=== PATIENT | male | born 1980 | race Caucasian/White ===

== ENCOUNTER 2021-06-13 16:26 | Emergency (ER) | payer SELFPAY ==
--- NOTE | 2021-06-13 18:39 | EDM.PDOC ---
ED HPI GENERAL MEDICAL PROBLEM - General Chief Complaint: Respiratory Problem Stated Complaint: COVID COMPLICATIONS Time Seen by Provider: 06/13/21 17:50 - History of Present Illness INITIAL COMMENTS - FREE TEXT/NARRATIVE: CHIEF COMPLAINT(S): Fatigue HISTORY OF PRESENT ILLNESS: This is a 41-year-old man without any significant past medical history who comes to the emergency department chief complaint of fatigue. The 10 states that he has been experienced symptoms for approximately 13 days and was diagnosed with Covid on June 07, 2021. He states that he has had continued fatigue and does not really feel like he wants to eat or drink any. He states that he has been trying to stay hydrated with Gatorade and water. In addition he states that he is still feeling dyspneic. He states that this is mainly when he is ambulating. He denies any fevers but states that he does have a cough which is intermittent and improving. He states that he has been cooperative. He denies recent travel, recent surgery or prior history of DVT or PE. He denies any chest pain. REVIEW OF SYSTEMS: Constitutional: Positive for fatigue. Denies fever, chills. Eyes: Denies eye pain Ears, Nose, Mouth, & Throat: Denies earache Cardiovascular: Denies chest pain Respiratory: Positive for exertional dyspnea and nonproductive cough Gastrointestinal: Positive anorexia. Denies Nausea, vomiting, diarrhea, hematochezia. Genitourinary: Denies hematuria Skin:Denies a rash MSK: Denies joint pain Neurological: Denies blurred vision Psychiatric: Denies depression PAST MEDICAL HISTORY: As per history of present illness and as reviewed below otherwise noncontributory. SURGICAL HISTORY: As per history of present illness and as reviewed below otherwise noncontributory. SOCIAL HISTORY: As per history of present illness and as reviewed below otherwise noncontributory. FAMILY HISTORY: As per history of present illness and as reviewed below otherwise noncontributory. EXAMINATION OF ORGAN SYSTEMS/BODY AREAS: Constitutional: Blood pressure is 144/79, heart rate 88, respiratory rate 18 with an oxygen saturation of 97% on room air. Temperature 36.7 General: Well-appearing man who is in no acute distress psychiatric: Appropriate mood and affect. Eyes: No scleral icterus or conjunctival erythema ENMT: Moist mucous membranes. No pharyngeal erythema Cardiovascular: Regular, rate, and rhythm. No gallops, murmurs, or rubs. Bilateral upper extremity pulses symmetric and intact. No peripheral edema. No JVD. Respiratory: Lungs clear to auscultation bilaterally. No wheezes, rales, or rhonchi. Gastrointestinal: Soft, non-tender, non-distended. Normoactive bowel sounds Genitourinary: No suprapubic tenderness Musculoskeletal: Normal range of motion. Skin: No lesions or abrasions. Neurological: Alert, GCS 15 MEDICAL DECISION MAKING AND COURSE IN THE ED WITH INTERPRETATION/REVIEW OF DIAGNOSTIC STUDIES: This is a 41-year-old man with a diagnosis of COVID-19 who presents to the emergency department with continued fatigue, nonproductive cough who is afebrile and appears well. At this time I do believe his symptoms are likely secondary to COVID-19. His vitals are completely normal at this time. We did perform a ambulatory pulse oximetry which is normal. At this time I do believe the patient is experiencing post Covid syndrome. He was strict return precautions and was amenable to discharge at this time. DISPOSITION: The patient was discharged home in stable condition. The patient will follow up with primary care physician in 3 to 5 days CONDITION: Fair PROCEDURES: None FINAL IMPRESSION(S)/DIAGNOSES: 1. Acute exertional dyspnea and fatigue likely secondary to post COVID-19 syndrome Jeremy Rascon M.D. Bilateral Headache Pain Score (Numeric/FACES): 6 - Related Data Allergies Allergy/AdvReac Type Severity Reaction Status Date / Time No Known Allergies Allergy Verified 04/09/20 23:55 MDT Past Medical History Cardiovascular History: Reports: None Respiratory History: Reports: None Gastrointestinal History: Reports: None Musculoskeletal History: Reports: Other (See Below) Other Musculoskeletal History: rigt elbow dislocation reduction, right orbital structure fracture repair with hardware. Neurological History: Reports: None Psychiatric History: Reports: None Endocrine/Metabolic History: Reports: Obesity/BMI 30+ Oncologic (Cancer) History: Reports: None - Infectious Disease History Infectious Disease History: Reports: None - Past Surgical History HEENT Surgical History: Reports: Other (See Below) Musculoskeletal Surgical History: Reports: Other (See Below) Social & Family History - Family History Family Medical History: No Pertinent Family History - Tobacco Use Tobacco Use Status *Q: Never Tobacco User - Caffeine Use Caffeine Use: Reports: None - Recreational Drug Use Recreational Drug Use: No ED ROS GENERAL - Review of Systems Review Of Systems: See Below ED EXAM, GENERAL - Physical Exam Exam: See Below Course - Vital Signs Last Recorded V/S: Last Vital Signs Temp 36.2 C 06/13/21 18:55 Pulse 82 06/13/21 18:55 Resp 17 06/13/21 18:55 BP 116/74 06/13/21 18:55 Pulse Ox 93 L 06/13/21 18:55 Departure - Departure Time of Disposition: 18:55 Disposition: Home, Self-Care 01 Condition: Fair Clinical Impression: Post-COVID syndrome - Discharge Information *PRESCRIPTION DRUG MONITORING PROGRAM REVIEWED*: No *COPY OF PRESCRIPTION DRUG MONITORING REPORT IN PATIENT DALILA: No Referrals: PCP,None [Primary Care Provider] - Forms: ED Department Discharge Additional Instructions: Your evaluated today on an emergent basis. At this time your vitals were all within normal limits and your oxygen maintain normal while ambulating. At this time I do believe her symptoms are likely due to post Covid syndrome as you have completed 14 days with Covid at this point and you have not had a fever and your cough has improved. I recommend you continue to use [id number] cough suppressant or use honey with tea to suppress your cough. You may use Tylenol and Motrin for pain. As discussed if you have any worsening shortness of b reath, chest pain, passing out I would like you to return to the emergency department. [facility] [address] [place] [address] [address] The patient is informed of any results of their evaluation and diagnostic workup and all questions are answered. They are given discharge instructions and return precautions. The patient is stable for discharge. The patient states they understand and agree with the plan and that they will return if their symptoms get worse or if they have any new concerns. The following information is given to patients seen in the emergency department who are being discharged to home. This information is to outline your options for follow-up care. We provide all patients seen in our emergency department with a follow-up referral. The need for follow-up, as well as the timing and circumstances, are variable depending upon the specifics of your emergency department visit. If you don't have a primary care physician on staff, we will provide you with a referral. We always advise you to contact your personal physician following an emergency department visit to inform them of the circumstance of the visit and for follow-up with them and/or the need for any referrals to a consulting specialist. The emergency department will also refer you to a specialist when appropriate. This referral assures that you have the opportunity for follow-up care with a specialist. All of these measure are taken in an effort to provide you with optimal care, which includes your follow-up. Under all circumstances we always encourage you to contact your private physician who remains a resource for coordinating your care. When calling for follow-up care, please make the office aware that this follow-up is from your recent emergency room visit. If for any reason you are refused follow-up, please contact the [facility] Emergency Department at and asked to speak to the emergency department charge nurse.
--- NOTE | 2021-06-13 18:49 | PCM.EKG ---
#1 Interpretation EKG Date: 06/13/21 Time: 18:01 Rhythm: NSR Rate (Beats/Min): 74 [place]: Normal P-Wave: Present QRS: Normal ST-T: Normal QT: Normal Comparison: NA - No Prior EKG EKG Interpretation Comments: Sinus Rhythm
--- NOTE | 2021-06-13 18:54 | PCM.EKG ---
#1 Interpretation EKG Date: 06/13/21 Time: 18:14 Rhythm: NSR Rate (Beats/Min): 84 [place]: Normal P-Wave: Present QRS: Normal ST-T: Normal QT: Normal Comparison: NA - No Prior EKG EKG Interpretation Comments: Sinus Rhythm
== END 2021-06-13 18:56 | disposition home or self-care (01) ==
LOC: MW.ED 16:26
DX: R53.83 Other fatigue (principal); R05 Cough; R06.00 Dyspnea, unspecified; R63.0 Anorexia; R51.9 Headache, unspecified; Z86.16 Personal history of COVID-19; E66.9 Obesity, unspecified; Z68.36 Body mass index [BMI] 36.0-36.9, adult
CPT/HCPCS: 93005; 99283-25

== ENCOUNTER 2022-04-02 14:40 | Emergency (ER) | payer BC ==
[2022-04-02] MEDS ORDERED: traMADol 50 MG Tab PO ONE (16:33)
[2022-04-02] MEDS ORDERED: Ibuprofen 600 MG Tab PO ONE (16:33)
== END 2022-04-02 17:21 | disposition home or self-care (01) ==
LOC: MW.ED 14:40
DX: S93.601A Unspecified sprain of right foot, initial encounter (principal); E66.9 Obesity, unspecified; Z68.35 Body mass index [BMI] 35.0-35.9, adult; X50.1XXA Overexertion from prolonged static or awkward postures, initial encounter
CPT/HCPCS: 73620; 99283; A9270

== ENCOUNTER 2023-11-01 07:59 | Day surgery (SDC) | payer BC ==
[~2023-11-01 07:59] MED LIST: Albuterol 0.083% 2.5 MG/3 ML Neb Soln NEB PRN; HYDROmorphone 1 MG/ML Syringe IVPUSH PRN; Lactated Ringers 1,000 ML IV SCH; Metoclopramide 10 MG/2 ML SDV IVPUSH PRN; Morphine 2 MG/ML SYRINGE IVPUSH PRN; Naloxone 0.4 MG/ML SDV IVPUSH PRN; Ondansetron 4 MG/2 ML SDV IVPUSH PRN; droPERidol 5 MG/2 ML SDV IVPUSH PRN; fentaNYL 50 MCG/ML SDV IVPUSH PRN
[2023-11-01] MEDS ORDERED: ceFAZolin 2 GM in Sodium Chloride 0.9% 50 ML IV ONE (08:00)
[2023-11-01] MEDS ORDERED: Propofol 200 MG/20 ML SDV ONE ×2 (08:29→09:40)
[2023-11-01] MEDS ORDERED: HYDROmorphone 2 MG/ML Syringe ONE ×2 (08:29→12:12)
[2023-11-01] MEDS ORDERED: Bupivacaine 0.5%/EPINEPHrine 1:200,000 30 ML SDV ONE (09:30)
[2023-11-01] MEDS ORDERED: Morphine 10 MG/ML SDV ONE (10:11)
[2023-11-01] MEDS ORDERED: Ondansetron 4 MG/2 ML SDV ONE (10:53)
[2023-11-01] MEDS ORDERED: Ketorolac 30 MG/ML SDV ONE (10:53)
[2023-11-01] MEDS ORDERED: Dexamethasone 4 MG/ML 5 ML MDV ONE (10:53)
[2023-11-01] MEDS ORDERED: Sugammadex Sodium 200 MG/2 ML VIAL IV ONE (12:35)
== END 2023-11-01 16:05 | disposition home or self-care (01) ==
LOC: MW.SDS 07:59
PROVIDERS: ATTEND Orthopaedic Surgery
DX: S83.511A Sprain of anterior cruciate ligament of right knee, initial encounter (principal); M25.861 Other specified joint disorders, right knee; F41.9 Anxiety disorder, unspecified; G47.30 Sleep apnea, unspecified; F17.210 Nicotine dependence, cigarettes, uncomplicated; E66.9 Obesity, unspecified
CPT/HCPCS: 29888; 64447; J0131; J1100; J1170; J1885; J2270; J2405; J2704; J3490; J7120